=== PATIENT | male | born 1965 | race Caucasian/White ===

== ENCOUNTER → 2017-12-09 | Outpatient (CLI) | payer OTHER | END | disposition home or self-care (01) | LOC: RAD 10:47 | DX: M24.672 Ankylosis, left ankle (principal) | CPT/HCPCS: 73590; 73610; 73630-LT ==

== ENCOUNTER 2017-12-23 10:20 | Day surgery (SDC) | payer OTHER ==
[2017-12-23] MEDS ORDERED: PROPOFOL 40 ML (11:33)
[2017-12-23] MEDS ORDERED: LIDOCAINE 2% (SDV) 5 ML INJ (11:33)
== END 2017-12-23 14:44 | disposition home or self-care (01) ==
LOC: GIL 10:20
DX: Z12.11 Encounter for screening for malignant neoplasm of colon (principal); D12.5 Benign neoplasm of sigmoid colon; K64.8 Other hemorrhoids; E11.9 Type 2 diabetes mellitus without complications; I12.9 Hypertensive chronic kidney disease with stage 1 through stage 4 chronic kidney disease, or unspecified chronic kidney disease; N18.9 Chronic kidney disease, unspecified
CPT/HCPCS: 45380; 88305